=== PATIENT | female | born 1965 | race African-American/Black ===

== ENCOUNTER 2019-09-26 19:12 | Inpatient (IN) | payer SELFPAY ==
[~2019-09-26] VITALS: Ht 157.5 cm; Wt 52.7 kg
[2019-09-26] MEDS ORDERED: ALBUTEROL (0.083%) 2.5MG/3ML NEB HHN STA (21:44)
[2019-09-26] MEDS ORDERED: IPRATROPIUM BROMIDE (0.02%) 0.5MG/2.5ML NEB HHN STA (21:44)
[2019-09-26 23:01] LABS: BASOPHILS % 0.2 % (0.0-2.0); EOSINOPHILS % 0.1 % (0.0-5.0); HEMATOCRIT. 32.4 % (36.0-48.0); HEMOGLOBIN. 10.6 g/dL (12.0-16.0); MEAN CORPUSCULAR HEMOGLOBIN 28.8 pg (28.0-32.0); MONOCYTES % 12.6 % (2.0-8.0); NEUTROPHILS % 68.1 % (40.0-76.0); PLATELET 320 x1000/uL (130-400); RED BLOOD CELL COUNT 3.68 mill/uL (4.2-5.4); RED CELL DISTRIBUTION WIDTH 14.1 % (11.6-14.6)
[2019-09-26 23:03] LABS: CHLORIDE 107 mEq/L (98-107)
[2019-09-27] MEDS ORDERED: SODIUM CHLORIDE 0.9% 1,000 ML IV ONE (02:00)
[2019-09-27 10:10] VITALS: BP 100/61
[2019-09-27] MEDS ORDERED: GLIM1TAB PO (10:24)
[2019-09-27] MEDS ORDERED: LINA5TAB PO (10:24)
[2019-09-27] MEDS ORDERED: DEXTROSE 50% WATER 50ML SYRINGE IV PRN (10:45)
[2019-09-27] MEDS ORDERED: ONDANSETRON HCL 4MG/2ML INJ IV PRN (10:45)
[2019-09-27] MEDS: SODIUM CHLORIDE 0.9% 1,000 ML IV SCH ×2 (11:00→21:43)
[2019-09-27] MEDS: GUAIFENESIN-DM 200MG-20MG/10ML UDC PO PRN (11:27)
[2019-09-27 12:00] VITALS: BP 106/69
[2019-09-27] MEDS: BLOOD SUGAR DIAGNOSTIC STRIP TEST SCH ×3 (12:49→21:43)
[2019-09-27] MEDS: INSULIN LISPRO 100 UNITS/ML SUBCUT SCH ×3 (12:49→21:42)
[2019-09-27] MEDS ORDERED: GLIMEPIRIDE 2MG TABLET PO NR (13:15)
[2019-09-27] MEDS: LINAGLIPTIN 5MG TABLET PO SCH (13:40)
[2019-09-27] MEDS ORDERED: IPRATROPIUM/ALBUTEROL 0.5-3(2.5)MG/3ML NEB HHN PRN (14:15)
[2019-09-27 14:16] LABS: BASOPHILS % 0.3 % (0.0-2.0); EOSINOPHILS % 0.7 % (0.0-5.0); HEMATOCRIT. 28.9 % (36.0-48.0); HEMOGLOBIN. 9.7 g/dL (12.0-16.0); MEAN CORPUSCULAR HEMOGLOBIN 29.1 pg (28.0-32.0); MEAN CORPUSCULAR VOLUME 86.8 fL (81.0-99.0); MEAN PLATELET VOLUME 8.2 fl (7.4-10.4); MONOCYTES % 14.1 % (2.0-8.0); NEUTROPHILS % 70.9 % (40.0-76.0); PLATELET 312 x1000/uL (130-400); RED BLOOD CELL COUNT 3.33 mill/uL (4.2-5.4); RED CELL DISTRIBUTION WIDTH 13.9 % (11.6-14.6)
[2019-09-27 14:22] LABS: CHLORIDE 114 mEq/L (98-107)
[2019-09-27 14:29] LABS: LDL CHOLESTEROL 67 mg/dL (5-100)
[2019-09-27 14:30] LABS: HDL CHOLESTEROL 57 mg/dL (40-59)
[2019-09-27] MEDS ORDERED: METHYLPREDNISOLONE SOD SUCC 125 MG/2 ML VIAL IV NR (14:30)
[2019-09-27] MEDS: BENZONATATE 100MG CAPSULE PO SCH ×2 (15:27→22:25)
[2019-09-27] MEDS: POLYVINYL ALCOHOL OPHTH DROPS 15ML BOTHEYE PRN (15:57)
[2019-09-27 16:00] VITALS: BP 108/57
[2019-09-27] MEDS ORDERED: THROAT LOZENGES-BENZOCAINE/MENTH/CETYLPYRD CL LOZENGES MM PRN (16:00)
[2019-09-27] MEDS: GLIMEPIRIDE 1MG TABLET PO SCH (18:27)
[2019-09-27] MEDS ORDERED: AZITHROMYCIN 500 MG TABLET PO SCH (18:30)
[2019-09-27 20:00] VITALS: BP 98/54
[2019-09-27] MEDS: IPRATROPIUM/ALBUTEROL 0.5-3(2.5)MG/3ML NEB HHN SCH (20:56)
[2019-09-28] VITALS: BP 99/50
[2019-09-28 04:00] VITALS: BP 102/66
[2019-09-28] MEDS: SODIUM CHLORIDE 0.9% 1,000 ML IV SCH (06:12)
[2019-09-28] MEDS: BENZONATATE 100MG CAPSULE PO SCH (06:12)
[2019-09-28] MEDS: BLOOD SUGAR DIAGNOSTIC STRIP TEST SCH (06:12)
[2019-09-28] MEDS: POLYVINYL ALCOHOL OPHTH DROPS 15ML BOTHEYE PRN (07:31)
[2019-09-28 08:14] VITALS: BP 128/74
[2019-09-28] MEDS: GLIMEPIRIDE 1MG TABLET PO SCH (08:34)
[2019-09-28] MEDS: PREDNISONE 20MG TABLET PO SCH ×2 (08:34→08:52)
[2019-09-28] MEDS: LINAGLIPTIN 5MG TABLET PO SCH (08:35)
[2019-09-28] MEDS: GUAIFENESIN-DM 200MG-20MG/10ML UDC PO PRN (08:51)
[2019-09-28] MEDS: INSULIN LISPRO 100 UNITS/ML SUBCUT SCH (08:51)
[2019-09-28] MEDS: IPRATROPIUM/ALBUTEROL 0.5-3(2.5)MG/3ML NEB HHN SCH (09:17)
[2019-09-28 09:25] VITALS: BP 128/74
== END 2019-09-28 10:25 | disposition home or self-care (01) | DRG 133 ==
LOC: ER 19:12 → 6WST 09-27 03:36 → ENRESERV 09-27 08:45
PROVIDERS: ADMIT Family Medicine; ATTEND Family Medicine
DX: J96.00 Acute respiratory failure, unspecified whether with hypoxia or hypercapnia (principal); I95.9 Hypotension, unspecified; R65.10 Systemic inflammatory response syndrome (SIRS) of non-infectious origin without acute organ dysfunction; E86.0 Dehydration; E11.9 Type 2 diabetes mellitus without complications; J20.9 Acute bronchitis, unspecified; E87.6 Hypokalemia; I10 Essential (primary) hypertension; Z88.8 Allergy status to other drugs, medicaments and biological substances
CPT/HCPCS: 36415; 71045; 80048; 80053; 80061; 82962; 83036; 83880; 84484; 85025; 87804; 93005; 94640; 99285; J1815; J2930; J7030; J7512